=== PATIENT | female | born 1980 | race African-American/Black ===

== ENCOUNTER 2017-02-10 22:45 | Emergency (ER) | payer BC ==
[2017-02-10 22:58] VITALS: BP 121/83; PULSE 90; TEMP 98.1; BMI 30.7
[2017-02-10] MEDS ORDERED: LIDOCAINE HCL 2% (20ML MULTI-DOSE VIAL) NR ONE (23:22)
--- NOTE | 2017-02-11 | PDOC ---
History of Present Illness - General Chief Complaint: Injury Stated Complaint: RT FT BIG TOE NAIL PARTIAL AVULSION Time Seen by Provider: 02/10/17 23:07 - History of Present Illness Initial Comments: 02/11/17 03:06 someone stepped on her r great toe, causing pain and bleeding cleaned it with H2O2 pmh: denies fhx: non-contrib ros: reviewed and otherwise negative o/e NAD RRR no rash r great toe: partially avulsed acrylic nail+ [place] nail; nail bed intact after toe block with 3 cc 2% lidocaine, avulsed nail removed, bandage applied a/p avulsed nail wound care Past History - Past Medical History Other medical history: DENIES - Psycho/Social/Smoking Cessation Hx Anxiety: No Suicidal Ideation: No Smoking History: Never smoked *Physical Exam - Vital Signs Last Vital Signs Temp Pulse Resp BP Pulse Ox 98.1 F 90 18 121/83 96 02/10/17 22:56 02/10/17 22:56 02/10/17 22:56 02/10/17 22:56 02/10/17 22:56 *DC/Admit/Observation/Transfer Diagnosis at time of Disposition: Nail avulsion, toe Qualifiers: Encounter type: initial encounter Qualified Code(s): S91.209A - Unspecified open wound of unspecified toe(s) with damage to nail, initial encounter - Discharge Dispostion Disposition: HOME Condition at time of disposition: Stable - Referrals Referrals: STAFF,NOT ON [Primary Care Provider] -
== END 2017-02-11 00:04 | disposition home or self-care (01) ==
LOC: FER 22:45
PROC: 0HDRXZZ Extraction of Toe Nail, External Approach (ICD-10-PCS; principal; 2017-02-10)
DX: S91.201A Unspecified open wound of right great toe with damage to nail, initial encounter (principal); W50.0XXA Accidental hit or strike by another person, initial encounter; Y93.89 Activity, other specified; Y92.9 Unspecified place or not applicable
CPT/HCPCS: 99282-25